=== PATIENT | female | born 1990 | race Caucasian/White ===

== ENCOUNTER 2022-09-29 20:35 | Inpatient (IN) | payer OTHER ==
[~2022-09-29] VITALS: Ht 172.7 cm; Wt 83.9 kg
[2022-09-29] MEDS ORDERED: ONDANSETRON HCL/PF 4 MG/2 ML VIAL ONE (23:37)
[2022-09-29] MEDS ORDERED: MORPHINE SULFATE INJ 4 MG/ML DISP.SYRIN ONE (23:37)
--- NOTE | 2022-09-29 23:46 | NUR ---
BLOOD WORK COLLECTED SENT
[2022-09-30] MEDS ORDERED: ONDANSETRON HCL/PF 4 MG/2 ML VIAL IVP ONE
[2022-09-30] MEDS ORDERED: MORPHINE SULFATE INJ 2 MG/ML DISP.SYRIN IV ONE
[2022-09-30 00:14] LABS: LYMPHOCYTES # (AUTO) 1.6 K/uL (0.8-4.8); MONOCYTES # (AUTO) 0.8 K/uL (0.1-1.30); NEUTROPHILS # (AUTO) 6.5 K/uL (1.8-8.9)
[2022-09-30 00:30] LABS: CALCIUM, SERUM 9.1 mg/dL (8.5-10.1); CREATININE 0.7 mg/dL (0.6-1.3)
--- NOTE | 2022-09-30 00:30 | NUR ---
US AT BEDSIDE
[2022-09-30 00:55] LABS: BASOPHILS % (AUTO) 0.3 % (0.0-2.0); HEMATOCRIT 44 % (33-45); HEMOGLOBIN 14.8 g/dL (11.5-14.8); LYMPHOCYTES % (AUTO) 18.2 % (20.0-44.0); MEAN CORPUSCULAR HGB CONC 34 g/dl (31.0-36.0); MEAN CORPUSCULAR VOLUME 88 fL (82-100); NEUTROPHILS % (AUTO) 72.5 % (43.0-81.0); PLATELET COUNT (AUTO) 353 K/uL (150-450); RED BLOOD CELL COUNT(AUTO) 4.99 MIL/uL (4.0-5.2)
[2022-09-30 01:30] LABS: ALBUMIN 4.1 g/dL (3.4-5.0); BILIRUBIN,TOTAL 4.7 mg/dL (0.2-1.0); TOTAL PROTEIN, SERUM 8.3 g/dL (6.4-8.2)
--- NOTE | 2022-09-30 01:50 | NUR ---
COVID SWAB DONE AND SENT TO LAB
[2022-09-30 01:54] LABS: BILIRUBIN,URINE 2+ (NEGATIVE); COLOR,URINE DARK YELLOW (YELLOW); LEUKOCYTE ESTERASE ,URINE NEGATIVE (NEGATIVE); NITRITE, URINE NEGATIVE (NEGATIVE); PH,URINE 5.5 (5.0-8.0); PROTEIN,URINE NEGATIVE (NEGATIVE); UGLUCOSE NEGATIVE (NEGATIVE); UROBILINOGEN,URINE 0.2 EU/dL (0.2)
[2022-09-30] MEDS ORDERED: IV NS 0.9% 1,000 ML BAG IV ONE (02:00)
[2022-09-30] MEDS ORDERED: POTASSIUM CL. PREMIX PERIPHER. 100 ML ONE (02:03)
[2022-09-30 02:22] LABS: BACTERIA,URINE Moderate /HPF (None Seen); SQUAMOUS EPITHELIAL CELL,UR Moderate /HPF (None Seen)
[2022-09-30] MEDS: POTASSIUM CL. PREMIX PERIPHER. 50 ML IV SCH ×2 (02:22→03:23)
[2022-09-30 02:23] LABS: YEAST,URINE Moderate /HPF (None Seen)
[2022-09-30] MEDS ORDERED: ZOLPIDEM TARTRATE 5 MG TABLET PO PRN (03:30)
[2022-09-30] MEDS ORDERED: MAGNESIUM HYDROXIDE 30 ML UDC PO PRN (03:30)
[2022-09-30] MEDS ORDERED: Z GUARD REMEDY 4 OZ OINT TP PRN (03:30)
[2022-09-30] MEDS ORDERED: ACETAMINOPHEN 325 MG TABLET PO PRN (03:30)
[2022-09-30] MEDS ORDERED: ONDANSETRON HCL/PF 4 MG/2 ML VIAL IVP PRN (03:30)
[2022-09-30] MEDS ORDERED: MAG HYDROX/AL HYDROX/SIMETH 30 ML UDC PO PRN (03:30)
--- NOTE | 2022-09-30 06:29 | NUR ---
PATIENT RESTING COMFORTABLY AT THIS TIME.
--- NOTE | 2022-09-30 07:10 | NUR ---
RECEIVED PT FROM FROM [facility] PT AWAKE AND ALERT DINALE ABDOMINL PAIN NO N/V
--- NOTE | 2022-09-30 08:10 | NUR ---
PROVIDER AT BED SIDE [employer]
--- NOTE | 2022-09-30 09:15 | NUR ---
RESTING AND COMFORTABLE AT THIS TIME
[2022-09-30] MEDS ORDERED: ELUX75TA PO (09:29)
[2022-09-30] MEDS ORDERED: DESI75TA4 PO (09:32)
--- NOTE | 2022-09-30 09:41 | NUR ---
TO MRI VIA WC STABLE VS
--- NOTE | 2022-09-30 11:00 | NUR ---
BACK FROM MRI NO PAIN
[2022-09-30] MEDS ORDERED: PANTOPRAZOLE 40 MG VIAL ONE (11:07)
[2022-09-30] MEDS: PANTOPRAZOLE 40 MG VIAL IV SCH (11:13)
--- NOTE | 2022-09-30 13:21 | NUR ---
WATING FOR MEDICALE FLOOR BED
[2022-09-30] MEDS: IV NS 0.9% 1,000 ML IV PRN (13:29)
--- NOTE | 2022-09-30 15:00 | NUR ---
PROVIDER AT BED SIDE UP DATE PT ABOUT LAB RESULT AND PLAN OF CARE
--- NOTE | 2022-09-30 16:30 | NUR ---
RESTING WITING FOR MEDICALE FLOOR BED
--- NOTE | 2022-09-30 18:10 | NUR ---
C/O PAIN 05/04 MORPHIN 4 MG IVP GIVEN
[2022-09-30] MEDS ORDERED: MORPHINE SULFATE INJ 4 MG/ML DISP.SYRIN ONE (18:25)
[2022-09-30] MEDS: MORPHINE SULFATE INJ 2 MG/ML DISP.SYRIN IV PRN ×2 (18:26→22:57)
--- NOTE | 2022-09-30 19:37 | NUR ---
HAND OFF AUDRA STONE
--- NOTE | 2022-09-30 19:45 | NUR ---
RECEIVED REPORT FROM BERTHA EDDY. PATIENT IS FOR ADMISSION D/T CHOLEDOLITHIASIS. PATIENT HAS IV CANNULA ON RIGHT AC G20. AAOX4. ABLE TO MAKE NEEDS KNOWN. ATTACHED TO MONITOR. VITALS CHECKED.
--- NOTE | 2022-09-30 20:26 | NUR ---
REPORT GIVEN TO RN RR.
--- NOTE | 2022-09-30 20:31 | NUR ---
PATIENT IS MADE AWARE THAT SHE IS ADMITTED TO 324. PLACED ON NPO. FAMILY AWARE.
--- NOTE | 2022-09-30 20:50 | NUR ---
PT BROUGHT TO ROOM
--- NOTE | 2022-09-30 21:00 | NUR ---
RECEIVED PATIENT FROM ER, ACCOMPANIED BY RN AND ENTERTAINMENT MANAGER VIA GURNEY. A/O X4. ABLE TO MAKE NEEDS KNOWN. BREATHING ON ROOM AIR, [id number] 99%. VITAL SIGNS TAKEN . IV ACCESS AT RIGHT AC #20, PATENT AND INFUSING WELL. ORIENTED TO ROOM SET-UP. SAFETY MEASURES INITIATED. WILL CONTINUE TO MONITOR.
[2022-09-30 22:11] VITALS: BP 129/76
--- NOTE | 2022-09-30 22:55 | NUR ---
RN NOTES - PAIN EPIGASTRIC PAIN, RATED SCALE 8/10. GIVEN MORPHINE 4MG IV PRN. APPLIED WARM COMPRESS. KEPT COMFORTABLE.
--- NOTE | 2022-09-30 23:05 | NUR ---
RN NOTES - NAUSEOUS COMPLAINS OF NAUSEA. NO VOMITING. GIVEN ZOFRAN 4MG IV PRN. ON NPO STATUS. KEPT COMFORTABLE.
[2022-10-01] MEDS: IV NS 0.9% 1,000 ML IV PRN ×3 (00:04→23:27)
[2022-10-01] MEDS: HYDROCODONE/APAP 5/325MG TABLET PO PRN ×2 (00:06→11:15)
[2022-10-01] MEDS: MORPHINE SULFATE INJ 2 MG/ML DISP.SYRIN IV PRN ×5 (03:22→23:21)
[2022-10-01 06:20] LABS: BASOPHILS % (AUTO) 0.2 % (0.0-2.0); HEMATOCRIT 40 % (33-45); HEMOGLOBIN 13.6 g/dL (11.5-14.8); LYMPHOCYTES # (AUTO) 0.9 K/uL (0.8-4.8); LYMPHOCYTES % (AUTO) 9.6 % (20.0-44.0); MEAN CORPUSCULAR HGB CONC 34 g/dl (31.0-36.0); MEAN CORPUSCULAR VOLUME 88 fL (82-100); MONOCYTES # (AUTO) 0.7 K/uL (0.1-1.30); MONOCYTES % (AUTO) 7.8 % (2.0-12.0); NEUTROPHILS # (AUTO) 7.7 K/uL (1.8-8.9); NEUTROPHILS % (AUTO) 82.4 % (43.0-81.0); PLATELET COUNT (AUTO) 290 K/uL (150-450); RED BLOOD CELL COUNT(AUTO) 4.59 MIL/uL (4.0-5.2); WHITE BLOOD COUNT (AUTO) 9.4 K/uL (4.3-11.0)
[2022-10-01 06:42] LABS: ALBUMIN 3.4 g/dL (3.4-5.0); BILIRUBIN,DIRECT 4.7 mg/dL (0.0-0.2); BILIRUBIN,TOTAL 5.2 mg/dL (0.2-1.0); CALCIUM, SERUM 8.8 mg/dL (8.5-10.1); CREATININE 0.6 mg/dL (0.6-1.3); MAGNESIUM 2.1 mg/dL (1.8-2.4); PHOSPHORUS 3.7 mg/dL (2.5-4.9); POTASSIUM 3.7 mmol/L (3.5-5.1); TOTAL PROTEIN, SERUM 6.8 g/dL (6.4-8.2)
--- NOTE | 2022-10-01 06:59 | NUR ---
RN CLOSING NOTES PATIENT IS AWAKE LYING IN BED. A/O X4. ABLE TO MAKE NEEDS KNOWN. BREATHING ON ROOM AIR, [id number] 100%. IV ACCESS AT RIGHT AC #20, PATENT AND INFUSING WELL. PRN MEDS GIVEN FOR PAIN. SAFETY MEASURES MAINTAINED. WILL ENDORSE TO NEXT SHIFT FOR MARGARET.
[2022-10-01 07:03] VITALS: BP 124/80
--- NOTE | 2022-10-01 07:45 | NUR ---
MS RN NOTES: RECEIVED PATIENT ASLEEP EASILY ROUSED, A/O X4. ABLE TO MAKE NEEDS KNOWN. PT ON ROOM AIR, [id number] 100%. IV ACCESS AT RIGHT AC #20, RUNNING NS @ 75ML/HR. PT C/O OF PAIN 06/04, WILL MEDICATE PER ORDER. PT IS ON NPO STATUS. SAFETY MEASURES IN PLACE, CALL LIGHT AND TABLE WITHIN REACH, WILL CONT WITH PLAN OF CARE DURING SHIFT.
[2022-10-01 08:00] VITALS: BP 121/78
[2022-10-01] MEDS: PANTOPRAZOLE 40 MG VIAL IV SCH (08:26)
[2022-10-01 16:00] VITALS: BP 120/73
--- NOTE | 2022-10-01 19:25 | NUR ---
RN opening notes Received Pt from morning nurse. Pt is resting in laying in bed comfortably watching tv. Pt is alert and orientedX4. On room air. no SOB. No S/S of distress noted. IV site at RAC# 22 is clean, intact and infuising well NS@ 75 ml/hr. NPO. Safety precautions is maintained. Bed at low position, brakes locked, side rails upX2, hob elevated and call light is within reach. Will continue to monitor.
[2022-10-01 20:00] VITALS: BP 124/71
--- NOTE | 2022-10-01 20:09 | NUR ---
MS RN CLOSING NOTES: PATIENT AWAKE, PARTNER AT BEDSIDE, A/O X4. ABLE TO MAKE NEEDS KNOWN. PT ON ROOM AIR, [id number] 100%. IV ACCESS AT RIGHT AC #20, RUNNING NS @ 75ML/HR. PRN MEDS GIVEN, NEEDS MET. PT IS ON NPO STATUS. SAFETY MEASURES IN PLACE, CALL LIGHT AND TABLE WITHIN REACH, ENDORSED TO PM SHIFT.
--- NOTE | 2022-10-01 23:45 | NUR ---
RN notes Dr. Gustafson at the bedside. ordered for clear liquids diet. Ordered carry out.
--- NOTE | 2022-10-02 01:16 | NUR ---
RN notes Spoke with DR. Barakat by phone. spoke with Pt. also ordered for D5 NS@ 75ml/hr. Zosyn 3.375 Q 8 hr and lab CBC and CMP. okay with clear liquids. Telephone order read back. Order carry out. Will continue to monitor.
--- NOTE | 2022-10-02 01:28 | NUR ---
RN notes Pt is feeling anxiety and requesting meds. Notified Dr. Mercedes. ordered ativan 1 mg/ IV push/Q 8hr/prn for anxiety. Order carry out.
[2022-10-02] MEDS ORDERED: PIPERACILLIN /TAZOBACTAM 3.375 G in IV D5W 50 ML IV SCH ×2 (01:30→02:00)
[2022-10-02] MEDS: IV D5/ 0.9% NACL 1,000 ML IV SCH ×2 (01:38→16:45)
[2022-10-02] MEDS: LORAZEPAM INJ 2 MG/ML VIAL IV PRN ×2 (01:38→21:34)
[2022-10-02] MEDS ORDERED: PIPERACILLIN /TAZOBACTAM 3.375 G VIAL IV ONE (01:42)
[2022-10-02 05:54] LABS: BASOPHILS % (AUTO) 0.2 % (0.0-2.0); EOSINOPHILS % (AUTO) 0.4 % (0.0-6.0); HEMATOCRIT 37 % (33-45); HEMOGLOBIN 12.4 g/dL (11.5-14.8); LYMPHOCYTES # (AUTO) 1.6 K/uL (0.8-4.8); LYMPHOCYTES % (AUTO) 21.7 % (20.0-44.0); MEAN CORPUSCULAR HGB CONC 33 g/dl (31.0-36.0); MEAN CORPUSCULAR VOLUME 88 fL (82-100); MONOCYTES # (AUTO) 0.9 K/uL (0.1-1.30); MONOCYTES % (AUTO) 11.6 % (2.0-12.0); NEUTROPHILS # (AUTO) 4.9 K/uL (1.8-8.9); NEUTROPHILS % (AUTO) 66.1 % (43.0-81.0); PLATELET COUNT (AUTO) 287 K/uL (150-450); RED BLOOD CELL COUNT(AUTO) 4.23 MIL/uL (4.0-5.2); WHITE BLOOD COUNT (AUTO) 7.4 K/uL (4.3-11.0)
--- NOTE | 2022-10-02 06:40 | NUR ---
RN closing notes Pt is resting in bed comfortably. Pt is alert and orientedX4. On room air. no SOB. No S/S of distress noted. IV site at RAC# 22 is clean, intact and infuising well D5NS@ 75 ml/hr. Safety precautions is maintained. Bed at low position, brakes locked, side rails upX2, hob elevated and call light is within reach. Will endorse to am nurse for MARGARET.
[2022-10-02 06:52] LABS: ALBUMIN 3.1 g/dL (3.4-5.0); CALCIUM, SERUM 8.5 mg/dL (8.5-10.1); CREATININE 0.7 mg/dL (0.6-1.3); POTASSIUM 3.5 mmol/L (3.5-5.1); TOTAL PROTEIN, SERUM 6.5 g/dL (6.4-8.2)
--- NOTE | 2022-10-02 07:19 | NUR ---
MS RN OPENING NOTES: RECEIVED PATIENT ASLEEP EASILY ROUSED, A/O X4. ABLE TO MAKE NEEDS KNOWN. PT ON ROOM AIR, [id number] 100%. IV ACCESS AT RIGHT AC #20, RUNNING NS @ 75ML/HR. DENIES PAIN AT THIS TIME. PT IS ON NPO STATUS. SAFETY MEASURES IN PLACE, CALL LIGHT AND TABLE WITHIN REACH, WILL CONT WITH PLAN OF CARE DURING SHIFT.
[2022-10-02 08:00] VITALS: BP 110/74
[2022-10-02] MEDS: PANTOPRAZOLE 40 MG VIAL IV SCH (09:21)
[2022-10-02] MEDS: PIPERACILLIN /TAZOBACTAM 3.375 G in IV D5W 100 ML IV SCH ×3 (09:24→23:58)
[2022-10-02] MEDS: MORPHINE SULFATE INJ 2 MG/ML DISP.SYRIN IV PRN (09:58)
[2022-10-02] MEDS: FLUCONAZOLE (100 MG) 100 MG TABLET PO SCH (11:15)
[2022-10-02 16:00] VITALS: BP 124/64
--- NOTE | 2022-10-02 19:50 | NUR ---
MS RN OPENING NOTE RECEIVED PATIENT IN BED; AWAKE, ALERT AND ORIENTED X 4. ON ROOM AIR; TOLERATING WELL. BREATHING EVEN AND NONLABORED. NOT IN ANY FORM OF RESPIRATORY DISTRESS. DENIES ANY PAIN OR DISCOMFORT AT THIS TIME. ABLE TO MAKE NEEDS KNOWN. WITH IV ACCESS ON RIGHT ANTECUBITAL 22G; PATENT AND INTACT INFUSING WITH D5NS 1L RUNNING @ 75 ML/HR; FLUSHES WELL. NO INFILTRATION NOTED. SAFETY PRECAUTIONS IMPLEMENTED: CALL LIGHT AND TABLE WITHIN REACH, SIDE RAILS UP X 2, BED IN LOWEST LOCKED POSITION. WILL CONTINUE TO MONITOR THROUGHOUT THE SHIFT.
[2022-10-02 20:00] VITALS: BP 135/83
--- NOTE | 2022-10-02 21:01 | NUR ---
MS RN CLOSING NOTES: PATIENT AWAKE, PARTNER AT BEDSIDE, A/O X4. ABLE TO MAKE NEEDS KNOWN. PT ON ROOM AIR, [id number] 100%. IV ACCESS AT RIGHT AC #20, RUNNING D5NS @ 75ML/HR. PRN MEDS GIVEN, NEEDS MET. KEPT DRY, CLEAN AND COMFORTABLE. SAFETY MEASURES IN PLACE, CALL LIGHT AND TABLE WITHIN REACH, ENDORSED TO PM SHIFT.
[2022-10-03] MEDS: IV D5/ 0.9% NACL 1,000 ML IV SCH ×2 (04:21→17:30)
[2022-10-03 05:59] LABS: BASOPHILS % (AUTO) 0.6 % (0.0-2.0); EOSINOPHILS % (AUTO) 1.7 % (0.0-6.0); HEMATOCRIT 39 % (33-45); LYMPHOCYTES # (AUTO) 1.3 K/uL (0.8-4.8); LYMPHOCYTES % (AUTO) 21.7 % (20.0-44.0); MEAN CORPUSCULAR HGB CONC 34 g/dl (31.0-36.0); MEAN CORPUSCULAR VOLUME 88 fL (82-100); MONOCYTES # (AUTO) 0.8 K/uL (0.1-1.30); MONOCYTES % (AUTO) 13.2 % (2.0-12.0); NEUTROPHILS # (AUTO) 3.8 K/uL (1.8-8.9); NEUTROPHILS % (AUTO) 62.8 % (43.0-81.0); PLATELET COUNT (AUTO) 299 K/uL (150-450); RED BLOOD CELL COUNT(AUTO) 4.39 MIL/uL (4.0-5.2); WHITE BLOOD COUNT (AUTO) 6.1 K/uL (4.3-11.0)
[2022-10-03 06:15] LABS: ALBUMIN 3.2 g/dL (3.4-5.0); BILIRUBIN,TOTAL 2.8 mg/dL (0.2-1.0); CALCIUM, SERUM 8.3 mg/dL (8.5-10.1); CREATININE 0.6 mg/dL (0.6-1.3); POTASSIUM 3.3 mmol/L (3.5-5.1); TOTAL PROTEIN, SERUM 6.9 g/dL (6.4-8.2)
--- NOTE | 2022-10-03 06:50 | NUR ---
MS RN CLOSING NOTE PATIENT IN BED; AWAKE, A/O X 4. STABLE ON ROOM AIR. BREATHING EQUAL AND UNLABORED. IN NO ACUTE DISTRESS. DENIES ANY PAIN OR DISCOMFORT AT THIS TIME. WITH IV ACCESS ON RIGHT ANTECUBITAL 22G; PATENT AND INTACT INFUSING WITH D5NS 1L RUNNING @ 75 ML/HR; FLUSHES WELL. SAFETY PRECAUTIONS MAINTAINED: CALL LIGHT AND TABLE WITHIN REACH, SIDE RAILS UP X 2, BED IN LOWEST LOCKED POSITION. ENDORSED TO MORNING SHIFT FOR MARGARET.
--- NOTE | 2022-10-03 07:30 | NUR ---
RN MS NOTES PT IN BED, ASLEEP, EASY TO AROUSE, ALERT AND ORIENTED, DENIES PAIN AT THIS TIME, RESPIRATIONS NORMAL, CALL LIGHT WITHIN REACH, IV FLUIDS INFUSING WELL, KEPT COMFORTABLE AND BARREL LOADER AND CLEANER BED.
[2022-10-03] MEDS: PIPERACILLIN /TAZOBACTAM 3.375 G in IV D5W 100 ML IV SCH ×3 (08:08→23:04)
[2022-10-03] MEDS: FLUCONAZOLE (100 MG) 100 MG TABLET PO SCH (09:27)
[2022-10-03] MEDS: PANTOPRAZOLE 40 MG VIAL IV SCH (09:27)
[2022-10-03] MEDS: cetrizine 10 MG TABLET PO SCH (10:36)
[2022-10-03] MEDS ORDERED: POTASSIUM CHLORIDE 20 MEQ POWDER PACKET PO ONE (11:00)
[2022-10-03] MEDS ORDERED: POTASSIUM CL. PREMIX PERIPHER. 50 ML IV SCH (11:00)
[2022-10-03] MEDS: FLUTICASONE PROPIONATE 16 GM BOTTLE NS SCH ×2 (12:05→17:00)
[2022-10-03] MEDS ORDERED: BUPIVACAINE 0.25% 75 MG/30 ML VIAL ONE (17:06)
[2022-10-03] MEDS ORDERED: LIDOCAINE HCL/MPF 1% 30 ML VIAL IJ ONE (17:06)
[2022-10-03] MEDS ORDERED: ANESTHESIA TRAY IN PYXIS 1 EA TRAY MC ONE (17:06)
[2022-10-03] MEDS ORDERED: BUPIVACAINE 0.5 % PF 150 MG/30 ML VIAL ONE (17:06)
--- NOTE | 2022-10-03 17:17 | NUR ---
RN MS NOTES PT SEEN BY GIANCARLO BEVERLY, PLAN OF CARE DISCUSSED WITH PT, ORDER FOR CHOLECYSTECTOMY GIVEN BY DR. GRADY, PT SIGNED ALL CONSENTS, PICKED UP BY O.R. STAFF VIA BED, IN STABLE CONDITION.
[2022-10-03] MEDS ORDERED: HYDROMORPHONE INJ 2 MG/ML DISP.SYRIN ONE (17:42)
[2022-10-03] MEDS ORDERED: FENTANYL PF 250MCG/5ML AMPUL ONE (17:42)
[2022-10-03] MEDS ORDERED: ROCURONIUM BROMIDE 50 MG/5 ML ONE (17:43)
[2022-10-03] MEDS ORDERED: FAMOTIDINE/PF INJ 20 MG/2 ML VIAL IV ONE (17:43)
[2022-10-03] MEDS ORDERED: MIDAZOLAM HCL 2 MG/2ML VIAL ONE (17:43)
[2022-10-03] MEDS ORDERED: METHYLENE BLUE 10 ML VIAL ONE (17:57)
[2022-10-03] MEDS ORDERED: IOHEXOL 50 ML IV ONE ×2 (17:58→18:57)
--- NOTE | 2022-10-03 19:40 | NUR ---
MS RN NOTE PT IS STILL IN OR FOR CHOLECYSTECTOMY. AWAITING FOR PT TO RETURN.
[2022-10-03] MEDS ORDERED: FENTANYL PF 100MCG/2ML AMPUL ONE (19:45)
[2022-10-03] MEDS ORDERED: HYDROMORPHONE 1 MG/1 ML DISP.SYRIN ONE (20:07)
[2022-10-03 21:00] VITALS: BP 135/66
--- NOTE | 2022-10-03 21:00 | NUR ---
MS RN OPENING NOTE PT RETURNS FROM ER. RECEIVED REPORT FROM STEP DOWN NURSE JAMES. PT A/O X 4, ABLE TO MAKE NEEDS KNOWN. NO SOB, NO RESPIRATORY DISTRESS NOTED. PT C/O PAIN TO ABDOMEN, PAIN LEVEL 10/10. PAIN MED ADMINISTERED TO PT. ICE PACK APPLIED TO ABDOMEN. PT HAS 3 INCISION SITES, WITH DRESSING CLEAN, AND DRY. VS STABLE. SAFETY MEASURE IN PLACE: BED LOCKED, AND LOW POSITION, SIDE RAILS UP X2, CALL LIGHT WITHIN REACH. WILL CONTINUE TO MONITOR PT.
[2022-10-03] MEDS: MORPHINE SULFATE INJ 2 MG/ML DISP.SYRIN IV PRN (21:11)
[2022-10-03 21:15] VITALS: BP 122/67
[2022-10-03 21:30] VITALS: BP 115/66
[2022-10-03 21:45] VITALS: BP 116/80
[2022-10-03 22:15] VITALS: BP 119/69
[2022-10-03 22:45] VITALS: BP 108/64
[2022-10-03] MEDS: HYDROCODONE/APAP 5/325MG TABLET PO PRN (23:01)
[2022-10-04] MEDS: MORPHINE SULFATE INJ 2 MG/ML DISP.SYRIN IV PRN ×4 (02:00→15:41)
[2022-10-04 05:00] VITALS: BP 115/65
[2022-10-04] MEDS: HYDROCODONE/APAP 5/325MG TABLET PO PRN ×3 (05:18→13:34)
[2022-10-04 06:24] LABS: BASOPHILS % (AUTO) 0.2 % (0.0-2.0); HEMATOCRIT 36 % (33-45); HEMOGLOBIN 11.8 g/dL (11.5-14.8); LYMPHOCYTES # (AUTO) 0.5 K/uL (0.8-4.8); LYMPHOCYTES % (AUTO) 5.2 % (20.0-44.0); MEAN CORPUSCULAR HGB CONC 33 g/dl (31.0-36.0); MEAN CORPUSCULAR VOLUME 89 fL (82-100); MONOCYTES # (AUTO) 0.4 K/uL (0.1-1.30); MONOCYTES % (AUTO) 4.7 % (2.0-12.0); NEUTROPHILS % (AUTO) 89.9 % (43.0-81.0); PLATELET COUNT (AUTO) 274 K/uL (150-450); RED BLOOD CELL COUNT(AUTO) 4.06 MIL/uL (4.0-5.2); WHITE BLOOD COUNT (AUTO) 8.9 K/uL (4.3-11.0)
[2022-10-04] MEDS: IV D5/ 0.9% NACL 1,000 ML IV SCH (06:50)
--- NOTE | 2022-10-04 06:50 | NUR ---
MS RN CLOSING NOTE LEFT PATIENT IN BED; AWAKE, A/O X 4. STABLE ON ROOM AIR. BREATHING EQUAL AND UNLABORED. IN NO ACUTE DISTRESS. C/O PAIN TO ABDOMEN AT THIS TIME, PAIN MED ADMINISTERED. WITH IV ACCESS ON RIGHT ANTECUBITAL 22 G; PATENT AND INTACT INFUSING WITH D5NS @ 75 ML/HR. SAFETY PRECAUTIONS MAINTAINED: CALL LIGHT AND TABLE WITHIN REACH, SIDE RAILS UP X 2, BED IN LOWEST LOCKED POSITION. WILL ENDORSE TO MORNING SHIFT FOR MARGARET.
[2022-10-04 07:00] VITALS: BP 112/73
[2022-10-04 07:02] LABS: ALBUMIN 2.8 g/dL (3.4-5.0); BILIRUBIN,TOTAL 1.8 mg/dL (0.2-1.0); CREATININE 0.8 mg/dL (0.6-1.3); POTASSIUM 3.4 mmol/L (3.5-5.1); TOTAL PROTEIN, SERUM 6.6 g/dL (6.4-8.2)
--- NOTE | 2022-10-04 07:28 | NUR ---
MS RN OPENING NOTE RECEIVED PT AWAKE IN BED. PT A/O X 4, ABLE TO MAKE NEEDS KNOWN. ON ROOM AIR WITH NO SOB, NO RESPIRATORY DISTRESS NOTED. PT C/O PAIN TO ABDOMEN, BUT STATES TOLERABLE UNTIL MEDICATIONS ARE DUE. IV ACCESS TO LEFT HAND 22G INTACT WITH NO INFILTRATION. PT HAS 3 INCISION SITES, WITH DRESSING CLEAN, AND DRY. VS STABLE. SAFETY MEASURE IN PLACE: BED LOCKED, AND LOW POSITION, SIDE RAILS UP X2, CALL LIGHT AND TRAY WITHIN REACH. WILL CONTINUE TO MONITOR PT.
--- NOTE | 2022-10-04 08:04 | NUR ---
RN NOTE RECEIVED CRITICAL VALUE FROM LAB GLUCOSE AT 377. REPORTED HIGH GLUCOSE LEVEL TO DR. HUERTA WHO ORDERED TO STOP D5 AND INFUSE NS AND GLUCOSE CHECK AT 12.
[2022-10-04] MEDS: PIPERACILLIN /TAZOBACTAM 3.375 G in IV D5W 100 ML IV SCH ×2 (08:33→15:03)
[2022-10-04] MEDS: cetrizine 10 MG TABLET PO SCH (09:01)
[2022-10-04] MEDS: FLUCONAZOLE (100 MG) 100 MG TABLET PO SCH (09:01)
[2022-10-04] MEDS: PANTOPRAZOLE 40 MG VIAL IV SCH (09:02)
[2022-10-04] MEDS: FLUTICASONE PROPIONATE 16 GM BOTTLE NS SCH ×2 (09:30→16:31)
[2022-10-04] MEDS ORDERED: IV NS 0.9% 1,000 ML IV PRN (09:30)
--- NOTE | 2022-10-04 09:36 | NUR ---
RN NOTES PT C/O ACHING SHARP PAIN ON RIGHT UPPER ABDOMEN, 7/10 SCALE. PRN NORCO 5/325 MG TAB PO GIVEN AT 0929. WILL CONTINUE TO MONITOR AND REASSESS PT.
[2022-10-04] MEDS ORDERED: POTASSIUM CHLORIDE 20 MEQ TAB.PRT.SR PO ONE (10:00)
[2022-10-04] MEDS ORDERED: BLOOD SUGAR DIAGNOSTIC 1 EACH STRIP IN ONE (11:30)
[2022-10-04] MEDS ORDERED: ACET325C7 PO (12:57)
[2022-10-04] MEDS ORDERED: IBUP-1957 PO (12:57)
[2022-10-04] MEDS ORDERED: HYDR-3972 PO (12:57)
--- NOTE | 2022-10-04 16:51 | NUR ---
RN DISCHARGED NOTES PT DISCHARGED HOME IN STABLE CONDITION. A/O X4. ABLE TO MAKE NEEDS KNOWN. V/S TAKEN, STABLE AND RECORDED. ALL BELONGINGS ACCOUNTED FOR AND PT SIGNED BELONGINGS LIST. STERILE STRIPS ON THREE INCISION SITES ON ABDOMEN C/D/I. IV ACCESS ON LEFT HAND G#22 REMOVED WITH NO ACTIVE BLEEDING NOTED, DRY PRESSURE DRESSING APPLIED AT SITE. HEALTH TEACHINGS/DISCHARGE INSTRUCTIONS GIVEN TO PT AND HER , BOTH VERBALIZED UNDERSTANDING.NAME [facility] REMOVED. PT LEFT UNIT @ 1640 VIA WHEELCHAIR ACCOMPANIED BY BERTHA SHETTY AND PT'S . MD AND CHARGE NURSE AWARE OF DISCHARGE.
[2022-10-05] MEDS ORDERED: PANTOPRAZOLE 40 MG TABLET.DR PO SCH (09:00)
== END 2022-10-04 16:30 | disposition home or self-care (01) | DRG 412 ==
LOC: ER 20:39 → TRANSITION 09-30 04:12 → MED 09-30 20:26
PROVIDERS: ADMIT Nurse Practitioner Acute Care; ATTEND Nurse Practitioner Acute Care
PROC: 0FT44ZZ Resection of Gallbladder, Percutaneous Endoscopic Approach (ICD-10-PCS; principal; 2022-10-03)
PROC: 0FC94ZZ Extirpation of Matter from Common Bile Duct, Percutaneous Endoscopic Approach (ICD-10-PCS; 2022-10-03)
PROC: 0FB04ZX Excision of Liver, Percutaneous Endoscopic Approach, Diagnostic (ICD-10-PCS; 2022-10-03)
PROC: BF10YZZ Fluoroscopy of Bile Ducts using Other Contrast (ICD-10-PCS; 2022-10-03)
DX: K80.71 Calculus of gallbladder and bile duct without cholecystitis with obstruction (principal); E87.1 Hypo-osmolality and hyponatremia; E87.6 Hypokalemia; Z20.822 Contact with and (suspected) exposure to COVID-19; E80.6 Other disorders of bilirubin metabolism; R74.01 Elevation of levels of liver transaminase levels; K82.8 Other specified diseases of gallbladder; E66.9 Obesity, unspecified; Z68.28 Body mass index [BMI] 28.0-28.9, adult; G47.33 Obstructive sleep apnea (adult) (pediatric)
CPT/HCPCS: 36415; 74018; 74181-TC; 76705-TC; 80048-TC; 80053-TC; 80076-TC; 81001; 82962-TC; 83690-TC; 83735-TC; 84100-TC; 84703-TC; 85025-TC; 87081-TC; 87086-TC; 93307-TC; A6209; C9113; C9803; G0378; J0690; J1100; J1170; J2060; J2250; J2270; J2405; J2543; J2704; J2765; J3010; J3480; J3490; J7030; J7042; J7050; J7060; Q9967; Q9968